=== PATIENT | male | born 2000 | race Caucasian/White ===

== ENCOUNTER 2023-01-06 16:41 | Outpatient (OUT) | payer OTHER, SELFPAY ==
[2023-01-06 17:42] LABS: Prostate Specific Antigen Scrn 0.87 ng/mL (<=4.00)
== END 2023-01-06 16:42 | disposition home or self-care (01) ==
PROVIDERS: PCP Family Medicine
DX: L90.5 Scar conditions and fibrosis of skin (principal); L70.0 Acne vulgaris; L64.8 Other androgenic alopecia
CPT/HCPCS: 36415; G0103